=== PATIENT | female | born 2000 | race Two or more races ===

== ENCOUNTER 2020-04-28 16:59 | Emergency (ER) | payer MEDICAID, OTHER ==
[~2020-04-28] VITALS: Ht 162.6 cm; Wt 72.6 kg
[2020-04-28 17:03] VITALS: BP 131/89
[2020-04-28] MEDS ORDERED: SODIUM CHLORIDE 0.9% 1,000 ML IV ONE (18:00)
[2020-04-28] MEDS ORDERED: KETOROLAC TROMETH 30 MG/ML 1ML VIAL IV ONE (18:00)
[2020-04-28] MEDS ORDERED: diazePAM 5 MG TAB PO ONE (18:00)
[2020-04-28] MEDS ORDERED: ACETAMINOPHEN 325 MG TAB PO ONE (18:00)
[2020-04-28 19:08] LABS: Hematocrit 43.6 % (36.0-46.0); Hemoglobin 15.3 g/dL (12.2-16.2)
[2020-04-28 19:34] LABS: BUN/Creatinine Ratio 16.7; Calcium 8.9 mg/dL (8.5-10.1); Potassium 3.9 mmol/L (3.5-5.1)
== END 2020-04-28 18:46 | disposition left against medical advice (07) ==
LOC: ER 16:59 → EDBD 16:59 → ER 18:46
DX: M54.5 Low back pain (principal); M54.2 Cervicalgia; F41.9 Anxiety disorder, unspecified; R51.9 Headache, unspecified; V49.9XXA Car occupant (driver) (passenger) injured in unspecified traffic accident, initial encounter; Y93.89 Activity, other specified; Y92.89 Other specified places as the place of occurrence of the external cause; Y99.8 Other external cause status
CPT/HCPCS: 36415; 71046; 72125; 80048; 85014; 85018; 93005

== ENCOUNTER 2021-12-29 12:26 | Emergency (ER) | payer MEDICAID, OTHER ==
[~2021-12-29] VITALS: Ht 157.5 cm; Wt 73.1 kg
[2021-12-29 13:47] VITALS: BP 119/87
[2021-12-29] MEDS ORDERED: METH750T22 PO (13:50)
[2021-12-29] MEDS ORDERED: IBUP800T27 PO (13:50)
[2021-12-29 13:54] LABS: Urine Bacteria FEW /hpf (None Seen); Urine Blood Negative /uL (Negative); Urine Specific Gravity 1.024 (1.001-1.035); Urine WBC 7 /hpf (0 - 5); Urine WBC Clumps PRESENT /hpf (None Seen)
[2021-12-29] MEDS ORDERED: IBUPROFEN 800 MG TAB PO ONE (14:00)
== END 2021-12-29 14:17 | disposition home or self-care (01) ==
LOC: ER 12:26
DX: S46.911A Strain of unspecified muscle, fascia and tendon at shoulder and upper arm level, right arm, initial encounter (principal); X58.XXXA Exposure to other specified factors, initial encounter; Y93.89 Activity, other specified; Y92.89 Other specified places as the place of occurrence of the external cause; Y99.8 Other external cause status
CPT/HCPCS: 81001